=== PATIENT | male | born 1970 | race Caucasian/White ===

== ENCOUNTER 2020-12-27 21:35 | Emergency (ER) | payer OTHER ==
[~2020-12-27] VITALS: Ht 182.9 cm; Wt 90.7 kg
[~2020-12-27 21:35] MED LIST: NOHOMEMEDICATIONS
[2020-12-27] MEDS ORDERED: FLEXERIL PO (23:28)
[2020-12-27] MEDS ORDERED: NORCO 10-325 T1 EACH PO (23:28)
[2020-12-27] MEDS ORDERED: MEDROLDOSEPACK PO (23:28)
[2020-12-27 23:39] VITALS: BP 144/102
== END 2020-12-27 23:47 | disposition home or self-care (01) ==
LOC: ER 21:35
DX: M54.5 Low back pain (principal); F12.90 Cannabis use, unspecified, uncomplicated; I10 Essential (primary) hypertension; Z88.5 Allergy status to narcotic agent; Z98.890 Other specified postprocedural states

== ENCOUNTER 2021-06-25 14:46 | Emergency (ER) | payer OTHER ==
[~2021-06-25] VITALS: Ht 182.9 cm; Wt 90.7 kg
[~2021-06-25 14:46] MED LIST changes: +FLEXERIL PO; +MEDROLDOSEPACK PO; +NORCO 10-325 T1 EACH PO
[2021-06-25] MEDS ORDERED: PREDNISONE 20 M20 MG PO (16:30)
[2021-06-25 16:35] VITALS: BP 120/78
== END 2021-06-25 16:35 | disposition home or self-care (01) ==
LOC: ER 14:46
DX: M25.511 Pain in right shoulder (principal); I10 Essential (primary) hypertension; Z98.890 Other specified postprocedural states; Z72.89 Other problems related to lifestyle; Z79.891 Long term (current) use of opiate analgesic; Z88.5 Allergy status to narcotic agent; Z88.8 Allergy status to other drugs, medicaments and biological substances